=== PATIENT | female | born 1990 | race Caucasian/White ===

== ENCOUNTER 2020-03-22 19:12 | Emergency (ER) | payer OTHER ==
[2020-03-22 19:29] VITALS: BP 111/53; PULSE 71; TEMP 98.4; BMI 26.2
[2020-03-22 21:55] LABS: HEMATOCRIT 38.3 % (32.4-45.2); HEMOGLOBIN 12.9 GM/dL (10.7-15.3); MCH 30.8 pg (25.7-33.7); MCHC 33.7 g/dl (32.0-36.0); MEAN CELL VOLUME 91.3 fl (80-96); MEAN PLT VOLUME 9.5 fl (7.5-11.1); PLATELET COUNT 201 K/MM3 (134-434); RBC 4.19 M/mm3 (3.60-5.2); RDW 13.1 % (11.6-15.6); WHITE BLOOD COUNT 8.5 K/mm3 (4.0-10.0)
[2020-03-22 22:15] LABS: POTASSIUM 3.7 mmol/L (3.5-5.1)
[2020-03-22 22:16] LABS: CALCIUM 9.2 mg/dL (8.5-10.1)
[2020-03-22 22:17] LABS: BLOOD UREA NITROGEN 6.6 mg/dL (7-18)
[2020-03-22 22:20] LABS: CREATININE 0.6 mg/dL (0.55-1.3)
== END 2020-03-23 | disposition home or self-care (01) ==
LOC: JER 19:12
DX: O26.851 Spotting complicating pregnancy, first trimester (principal)
CPT/HCPCS: 36415; 76801-TC; 80048; 84702; 85027; 86850; 86900; 86901; 99285-25